=== PATIENT | male | born 1945 | race Caucasian/White ===

== ENCOUNTER 2020-12-26 00:13 | Emergency (ER) | payer MEDICARE, SELFPAY ==
--- NOTE | ~2020-12-26 | XR_ITS ---
EXAMINATION: XR abdomen/kub 1V DATE: 12/26/2020 00:44 INDICATION: Constipation TECHNIQUE: A supine view of the abdomen on 2 radiographs was obtained. COMPARISON: None. FINDINGS: Large amount of stool in the ascending and transverse colon with small to account the descending colo n and rectum. No dilated gas-filled loops of bowel to suggest obstruction. Mild lumbar levocurvature with moderate spondylosis. 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 IMPRESSION: 1. Large amount of stool in the proximal colon consistent with given history of constipation. Reviewed, dictated and finalized at location A.
[2020-12-26 00:16] VITALS: BP 141/105; PULSE 64; RESP 16; TEMP 36.5; O2SAT 100
--- NOTE | 2020-12-26 00:28 | ED.ABDPAIN ---
HPI - Abdominal Pain General Chief Complaint: Abdominal Pain Stated Complaint: constipation Time Seen by Provider: 12/26/20 00:26 History of Present Illness HPI narrative: 75 yo male presents from home for constipation. He had knee surgery about 3 weeks ago. Following that he was on narcotic pain medication. He was managing associated constipation with bhanu. About 2 weeks ago he stopped taking both. He notes that he had a few bowel movements after that, but now has not had any in 5 days. He tried an enema, but reports that it didn't work because it was rock hard up there . He has had increasing bloating and abdominal discomfort since that time. Related Data Allergies Allergy/AdvReac Type Severity Reaction Status Date / Time No Known Allergies Allergy Unverified 01/10/16 07:22 Review of Systems Review of Systems: All systems reviewed & are unremarkable except as noted in HPI and below Constitutional: Constitutional: Denies chills and Denies fever(s) Cardiovascular: Cardiovascular: Denies chest pain Respiratory: Respiratory: Denies dyspnea Gastrointestinal: Gastrointestinal: Reports as per HPI Genitourinary: Genitourinary: Reports no additional male genitourinary complaints [facility] Surgical History Surgical History (Updated 12/28/20 @ 19:49 by Daron Brian MD) H/O knee surgery Social History Social History (Updated 12/28/20 @ 19:49 by Daron Brian MD) Smoking status: Never smoker Substance use: never Gender identity (if verbalized by the patient): Male Exam Const: General: healthy appearing, no acute distress and alert Orientation/consciousness: patient oriented x3 HENMT: Head: normal to inspection Neck: Neck: normal visual inspection Resp: Effort & Inspection: normal respiratory effort Auscultation: clear to auscultation bilaterally Cardio: Rate: regular rate Rhythm: regular rhythm GI: Inspection: distended GI Palp: No Tenderness to palpation present (GI) and No Palpable mass present Percussion: Yes normal to percussion Auscultation: normal bowel sounds Skin: General skin exam: normal color Neuro: General: patient oriented x3, moves all extremities and no focal motor deficits Speech: normal speech Gait exam (Neuro): Normal gait present Extrem: General: normal to inspection Course Vital Signs Vital signs: Vital Signs Temperature 36.5 C 12/26/20 00:16 Pulse Rate 64 12/26/20 00:16 Respiratory Rate 16 12/26/20 00:16 Blood Pressure 141/105 H 12/26/20 00:16 Pulse Oximetry 100 12/26/20 00:16 Temperature 36.5 C 12/26/20 00:16 Pulse Rate 66 12/26/20 05:03 Respiratory Rate 18 12/26/20 05:03 Blood Pressure 146/89 H 12/26/20 05:03 Pulse Oximetry 99 12/26/20 05:03 MDM - Abdominal Pain MDM Narrative Medical decision making narrative: 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 He had a large bowel movement and felt significantly improved and ready for discharge after 2 colace enemas. He plans to get magnesium citrate to drink at home if he continues to have problems. Imaging Data Radiologist's impression: ITS Impressions Abdomen X-Ray 12/26/20 10:20 IMPRESSION: 1. Large amount of stool in the proximal colon consistent with given history of constipation. Discharge Plan Discharge Clinical Impression: Constipation Patient Disposition: Home, Self-Care Condition: Stable Instructions: Constipation (ED) Prescriptions: New magnesium citrate Solution 300 ml PO DAILY PRN (Reason: constipation) Qty: 296 RF: 0 Follow-up/Referrals: Kal aSnchez MD [Primary Care Provider] -
[2020-12-26] MEDS: DOCUSATE SODIUM 400 MG/400 ML ENEMA RECTAL (02:16)
[2020-12-26 02:45] VITALS: BP 151/90; PULSE 64; RESP 18
--- NOTE | 2020-12-26 05:00 | PC.NURSE ---
Pt with medium results and reports feeling better.
[2020-12-26 05:03] VITALS: BP 146/89; PULSE 66; RESP 18; O2SAT 99
== END 2020-12-26 05:03 | disposition home or self-care (01) ==
PROVIDERS: Emergency Provider Emergency Medicine; PCP Family Medicine
DX: K59.00 Constipation, unspecified (principal)
CPT/HCPCS: 74018; 99283

== ENCOUNTER → 2021-07-27 02:53 | Outpatient (CLI) | payer MEDICARE, SELFPAY ==
[2021-07-27 19:39] LABS: SARS-CoV-2 RNA PCR Negative
== END ==
PROVIDERS: PCP Family Medicine; Visit Provider Family Medicine
DX: Z20.822 Contact with and (suspected) exposure to COVID-19 (principal)
CPT/HCPCS: C9803; U0003; U0005